=== PATIENT | male | born 1955 | race Caucasian/White ===

== ENCOUNTER 2018-03-21 17:51 | Emergency (ER) | END 2018-03-21 21:00 | disposition left against medical advice (07) ==

== ENCOUNTER 2018-03-22 03:04 | Inpatient (IN) | END 2018-03-22 14:35 | disposition left against medical advice (07) | DRG 440 ==

== ENCOUNTER 2018-10-16 20:02 | Emergency (ER) | payer MEDICAID ==
[~2018-10-16] VITALS: Ht 175.3 cm; Wt 63.6 kg
[2018-10-16 20:04] VITALS: Ht 175.3 cm; Wt 63.6 kg
[2018-10-16] MEDS ORDERED: morphine 4 MG/ML VIAL IV STA (22:26)
--- NOTE | 2018-10-16 23:51 | ERD ---
ER Documentation Chief Complaint Chief Complaint L FLANK PAIN X'S 3 DAYS, RECENTLY ADMITTED FOR SAME HPI 63-year-old male presenting with left lower quadrant abdominal pain for the last 3 days. He states he was at [facility] where they did "nothing". He denies any associated fever, chills, nausea, vomiting, diarrhea or constipation. He also has a rash in that area but does not think that this is related. The rash does not hurt and does not itch. He denies any hematuria or dysuria. Although the chief complaint states that he has flank pain, he is denying any flank pain. He just states that his left lower quadrant pain radiates to his left lower back. ROS All systems reviewed and are negative except as per history of present illness. Medications Home Meds Active Scripts Ibuprofen* (Motrin*) 600 Mg Tab, 600 MG PO Q6H PRN for PAIN LEVEL 1-5, #30 TAB Prov:AGNES MENDOZA MD 10/17/18 Oxycodone Hcl* (IR) (Oxycodone Hcl*) 5 Mg Capsule, 5 MG PO Q8 PRN for PAIN LEVEL 6-10, #9 TAB Prov:AGNES MENDOZA MD 10/17/18 valACYclovir HCl (Valtrex) 1,000 Mg Tablet, 1000 MG PO TID for 7 Days, TAB Prov:RAF VALDEZ MD 10/17/18 Allergies Allergies: Coded Allergies: No Known Allergy (Unverified , 03/21/18) PMhx/Soc History of Surgery: Yes (Left hip ORIF) Anesthesia Reaction: No Hx Neurological Disorder: No Hx Respiratory Disorders: No Hx Cardiac Disorders: No Hx Psychiatric Problems: No Hx Miscellaneous Medical Probl: Yes (Diverticulitis, Cataracts) Hx Alcohol Use: Yes (Occasionally) Hx Substance Use: Yes (Marijuana) Hx Tobacco Use: Yes (1 pack /day) Smoking Status: Current every day smoker FmHx Family History: No diabetes Physical Exam Vitals Vital Signs Date Temp Pulse Resp B/P (MAP) Pulse Ox O2 O2 Flow FiO2 Time Delivery Rate 10/17/18 92 18 131/75 95 Room Air 09:07 (93) 10/16/18 97.6 78 18 146/95 94 Room Air 21:10 (112) 10/16/18 97.0 85 18 123/72 94 20:04 (89) Physical Exam Const: No acute distress, disheveled Head: Atraumatic Eyes: Normal Conjunctiva ENT: Normal External Ears, Nose and Mouth. Neck: Full range of motion. No meningismus. Resp: Clear to auscultation bilaterally Cardio: Regular rate and rhythm, no murmurs Abd: Soft, left lower quadrant tenderness to palpation with guarding but no rebound. No masses.non distended. Normal bowel sounds Skin: Scaly maculopapular rash in the left lower quadrant with no vesicles, non-blanching. Back: No midline or flank tenderness Ext: No cyanosis, or edema Neur: Awake and alert Psych: Normal Mood and Affect Result Diagram: 10/16/18230910/16/182309 Results 24 hrs Laboratory Tests Test 10/16/18 23:10 White Blood Count 8.7 10^3/ul Red Blood Count 4.17 10^6/ul Hemoglobin 13.1 g/dl Hematocrit 38.6 % Mean Corpuscular Volume 92.6 fl Mean Corpuscular Hemoglobin 31.4 pg Mean Corpuscular Hemoglobin Concent 33.9 g/dl Red Cell Distribution Width 19.5 % Platelet Count 330 10^3/UL Mean Platelet Volume 10.7 fl Immature Granulocytes % 0.300 % Neutrophils % 61.9 % Lymphocytes % 23.4 % Monocytes % 13.3 % Eosinophils % 0.6 % Basophils % 0.5 % Nucleated Red Blood Cells % 0.2 /100WBC Immature Granulocytes # 0.030 10^3/ul Neutrophils # 5.4 10^3/ul Lymphocytes # 2.0 10^3/ul Monocytes # 1.2 10^3/ul Eosinophils # 0.1 10^3/ul Basophils # 0.0 10^3/ul Nucleated Red Blood Cells # 0.0 10^3/ul Urine Color YELLOW Urine Clarity CLEAR Urine pH 6.0 Urine Specific [place] 1.004 Urine Ketones NEGATIVE mg/dL Urine Nitrite NEGATIVE mg/dL Urine Bilirubin NEGATIVE mg/dL Urine Urobilinogen NEGATIVE mg/dL Urine Leukocyte Esterase NEGATIVE Rahul/ul Urine Hemoglobin NEGATIVE mg/dL Urine Glucose NEGATIVE mg/dL Urine Total Protein NEGATIVE mg/dl Sodium Level 137 mmol/L Potassium Level 3.9 mmol/L Chloride Level 98 mmol/L Carbon Dioxide Level 29 mmol/L Anion Gap 10 Blood Urea Nitrogen 5 mg/dl Creatinine 0.47 mg/dl Est Glomerular Filtrat Rate mL/min > 60 mL/min Glucose Level 90 mg/dl Calcium Level 9.2 mg/dl Total Bilirubin 0.5 mg/dl Direct Bilirubin 0.00 mg/dl Indirect Bilirubin 0.5 mg/dl Aspartate Amino Transf (AST/SGOT) 91 IU/L Alanine Aminotransferase (ALT/SGPT) 61 IU/L Alkaline Phosphatase 161 IU/L Total Protein 8.3 g/dl Albumin 4.1 g/dl Globulin 4.20 g/dl Albumin/Globulin Ratio 0.97 Current Medications Medications Dose Sig/Dorothy Start Time Status Last (Trade) Ordered Route PRN Stop Time Admin Dose Reason Admin Morphine 4 mg ONCE STAT 10/16/18 DC 10/16/18 Sulfate IV 22:26 23:16 (morphine) 10/16/18 22:28 1 tab ONCE ONCE 10/17/18 DC 10/17/18 Acetaminophen PO 02:00 01:43 / 10/17/18 02:01 Hydrocodone Bitart ([place] (10/325)) Ibuprofen 600 mg ONCE ONCE 10/17/18 DC 10/17/18 (Motrin) PO 07:00 06:38 10/17/18 07:01 Procedures/MDM EMERGENT LABS AND DIAGNOSTIC STUDIES: Lab Results above were reviewed and interpreted by me. CBC: no anemia or evidence of infection CMP: No evidence of clinically significant electrolyte abnormality, acidosis, renal failure, hypoglycemia, liver disease, or biliary obstruction UA: no evidence of infection Radiology Results as interpreted by Radiology below were reviewed by Marietta Valdez MD: CT abdomen and pelvis: Pending Initial Nursing notes reviewed. Previous Medical Records requested via the Electronic Health Record. EMERGENCY DEPARTMENT COURSE / MEDICAL DECISION MAKING: Differential includes but is not limited to appendicitis, colitis, cystitis, ureterolithiasis, diverticulitis, abdominal aortic dissection, bowel obstruction, fecal impaction. Bloodwork, and UA ordered to evaluate for above. CT abdomen and pelvis ordered and is pending. It is quite possible that the patient is suffering from shingles which is why he is experiencing pain in the left lower quadrant where the rash is located. He was treated with pain medications. Prescription for Valtrex was written. Patient signed out to the oncoming ED physician who will follow up on the CT scan to make sure there is no evidence of acute surgical abdomen prior to discharge. Patient's blood pressure was elevated (>120/80) but appears stable without evidence of hypertensive emergency or urgency. The patient was counseled about the risks of hypertension and urged to pursue outpatient monitoring and therapy within a week with their primary care physician. Departure Diagnosis: Primary Impression: Left lower quadrant pain Additional Impression: Herpes zoster dermatitis Condition: Stable RAF VALDEZ MD Oct 16, 2018 23:50
[2018-10-17] MEDS ORDERED: VALA10004 PO (00:23)
[2018-10-17] MEDS ORDERED: HYDROCODONE/APAP (10/325) TAB PO ONE (02:00)
[2018-10-17] MEDS ORDERED: IBUPROFEN 600 MG TAB PO ONE (07:00)
[2018-10-17 09:07] VITALS: BP 131/75; PULSE 92; RESP 18
[2018-10-17] MEDS ORDERED: OXYC5CAP17 PO (17:59)
[2018-10-17] MEDS ORDERED: IBUP-1542 PO (17:59)
== END 2018-10-17 09:28 | disposition home or self-care (01) ==
LOC: E/R 20:02
DX: R10.32 Left lower quadrant pain (principal); B02.39 Other herpes zoster eye disease; F17.210 Nicotine dependence, cigarettes, uncomplicated
CPT/HCPCS: 36415; 74176; 80053; 81003; 85025; 96374; J2270; Z7502; Z7610

== ENCOUNTER 2018-10-17 16:40 | Emergency (ER) | payer MEDICAID ==
[~2018-10-17] VITALS: Ht 175.3 cm; Wt 64.0 kg
[~2018-10-17 16:40] MED LIST: VALA10004 PO
[2018-10-17 16:46] VITALS: Ht 175.3 cm; Wt 64.0 kg
[2018-10-17] MEDS ORDERED: OXYCODONE/ACETAMINOPHEN (5/325) TAB PO ONE (17:30)
--- NOTE | 2018-10-17 17:58 | ERD ---
ER Documentation Chief Complaint Chief Complaint LLQ QUADRANT PAIN HPI This is a 63-year-old man with a past medical history of diverticulosis with previous bouts of diverticulitis who is presenting with persistent left lower quadrant abdominal pain. The patient was evaluated multiple times yesterday for left lower quadrant abdominal pain. The patient had a full abdominal workup yesterday that was reassuring. The patient does have diverticulosis but no evidence of diverticulitis. The patient does have a rash over the left lower quadrant and was diagnosed with herpes zoster yesterday. The patient was given a prescription of valacyclovir, but he has not filled it. The patient is endorsing persistent left lower abdominal pain today. He denies nausea or vomiting. He has not had any diarrhea. He has not had any he denies constipation or diarrhea. He has not had any black or bloody or tarry stools. He has not had any dysuria or hematuria or urgency or frequency. The patient is afebrile and does not feel sick otherwise. The patient has had no headache or vision changes. The patient does not endorse neck or back pain. The patient denies lightheadedness or dizziness. The patient has had no chest pain or trouble breathing. The patient has had no focal deficits. The patient has had no weakness or numbness or tingling to the face or extremities. ROS All systems reviewed and are negative except as per history of present illness. Medications Home Meds Active Scripts valACYclovir HCl (Valtrex) 1,000 Mg Tablet, 1000 MG PO TID for 7 Days, TAB Prov:RAF MILLAN MD 10/17/18 Allergies Allergies: Coded Allergies: No Known Allergy (Unverified , 03/21/18) PMhx/Soc History of Surgery: Yes (Left hip ORIF) Anesthesia Reaction: No Hx Neurological Disorder: No Hx Respiratory Disorders: No Hx Cardiac Disorders: No Hx Psychiatric Problems: No Hx Miscellaneous Medical Probl: Yes (Diverticulitis, Cataracts, herpes zoster) Hx Alcohol Use: Yes (Occasionally) Hx Substance Use: Yes (Marijuana) Hx Tobacco Use: Yes (1 pack /day) Smoking Status: Current every day smoker FmHx Family History: No diabetes Physical Exam Vitals Vital Signs Date Temp Pulse Resp B/P (MAP) Pulse Ox O2 O2 Flow FiO2 Time Delivery Rate 10/17/18 98.5 90 19 138/70 94 16:46 (92) Physical Exam Const: No acute distress Head: Atraumatic Eyes: Normal Conjunctiva ENT: Normal External Ears, Nose and Mouth. Neck: Full range of motion. No meningismus. Resp: Clear to auscultation bilaterally Cardio: Regular rate and rhythm, no murmurs Abd: Soft, non distended. Superficial left lower quadrant tenderness. Normal bowel sounds Skin: No petechiae. Erythematous vesicular rash isolated to a dermatome over the left lower quadrant of the abdomen, very tender to touch. Back: No midline or flank tenderness Ext: No cyanosis, or edema Neur: Awake and alert Psych: Normal Mood and Affect Results 24 hrs Current Medications Medications Dose Sig/Dorothy Start Time Status Last (Trade) Ordered Route PRN Stop Time Admin Dose Reason Admin Oxycodone/ 1 tab ONCE ONCE 10/17/18 DC 10/17/18 Acetaminophen PO 17:30 17:40 (Percocet 10/17/18 17:31 (5/ 325)) Procedures/MDM MDM The patient's presentation warrants further investigation. Previous medical records, if available, were reviewed. LABS The patient's laboratory testing was reviewed from yesterday. No emergent treatment was required unless described below. CBC: No E/o systemic infection or thrombocytopenia. Mild normocytic anemia, not emergent. Chemistry: No E/o severe acidosis or alkalosis or renal failure or diabetic ketoacidosis. Mild transaminitis, not emergent. Urine: No E/o acute infection or hematuria IMAGING Imaging and Radiology interpretation reviewed. CT abdomen pelvis performed yesterday FINDINGS: CT abdomen Visualized lung bases: Large area of airspace disease involving the right middle lobe. Hyperinflated lungs with flattening hemidiaphragms. Asymmetric peribronchial thickening right lower lobe. Patchy decreased aeration posterior lateral inferior right lower lobe. No significant pleural or pericardial effusion. Liver: Limited evaluation without IV contrast. Mild hepatic steatosis. Small calcifications and areas of C liver parenchymal attenuation change in the la teral right hepatic lobe, correspond to a much larger lesion seen on the contrast-enhanced study from 2018. Gallbladder and bile ducts: No calcified gallstones or pericholecystic fluid. No biliary ductal dilatation. Spleen: Small spleen. Pancreas: Dilated pancreatic duct. 2.2 cm exophytic low attenuation mass lesion in off the inferior body of the pancreas, unchanged. Multiple small calcifications noted within the head of the pancreas, increased in number. Adrenal glands: 2.1 cm low attenuation left adrenal mass, unchanged. The normal right adrenal gland Kidneys: Multiple nonobstructing calcified stones in the left and right ki dneys, largest measuring 5 mm in size. No hydronephrosis or hydroureter. Vasculature: No abdominal aortic aneurysm. Calcified plaque present. Negative IVC. Lymph nodes: No periaortic or portacaval adenopathy. 1.3 cm right retrocrural lymph node/cyst, unchanged. GI: No evidence of obstruction or bowel wall thickening. Peritoneal cavity: No free fluid or free air. CT pelvis GI: Negative terminal ileum. The appendix is not identified. Sigmoid diverticulosis. Negative rectum. : Normal distal ureters, ureterovesicle junctions and urinary bladder. Negative prostate gland. Peritoneal cavity: No free fluid or loculated fluid collections. Lymph nodes: No adenopathy. Osseous structures: Remote left hip ORIF with hardware. Bones are demineralized. No acute endplate fracture. L5-S1 disc degeneration with vacuum phenomenon. IMPRESSION: 1. Large mass in the right hepatic lobe demonstrated on the contrast-enhanced study from 05/05/2018 is not as well visualized on the noncontrast study. I cannot ascertain if the mass has enlarged, regressed or is unchanged from the previous exam. There are small calcifications in the vicinity of the mass which are new from the previous exam. 2. COPD with right lower lobe bronchitis and atelectasis involving the posterior right middle lobe. 3. 2.2 cm exophytic cystic mass arising from the inferior body of the pancreas, unchanged. 4. Multiple small pancreatic head calcifications which have increased in number in the 5-month interval since the previous exam. 5. Multiple nonobstructing bilateral renal stones, 5 mm and left and size. 6. 2.1 cm left adrenal mass, unchanged. Probable adenoma. 7. Sigmoid diverticulosis. No acute diverticulitis. 8. Severe bony demineralization with remote left hip ORIF. Electronically viewed and signed by Physician Neo on 10/17/2018 00:34 TREATMENT/DISPOSITION The patient presents for persistent superficial left lower quadrant pain. The patient has herpes zoster, which I suspect to be the etiology of his symptoms. The patient had a full workup performed yesterday, and I do not feel the patient requires repeat testing today. The patient does have a right hepatic lobe mass, a unchanged pancreatic cystic mass, diverticulosis without diverticulitis, multiple small pancreatic head calcifications, nonobstructing renal stones, and an unchanged left adrenal mass. The patient will be notified of these studies and does require outpatient follow-up, but I do not suspect this to be the etiology of his symptoms today. The patient was given a dose of oxycodone with Tylenol in the emergency department. He needs to fill his valacyclovir prescription. The patient's pain is isolated to the region of his herpes zoster. The patient does not have any evidence of peritonitis. The patient does not have clinical symptoms concerning for mesenteric ischemia or ischemic colitis. The patient does not have right upper quadrant tenderness, and I have low suspicion for gallstones, cholecystitis or biliary colic. The patient does not have any epigastric pain. I have low suspicion for gastritis, PUD or GERD. The patient does not have left upper quadrant tenderness. I have low suspicion for pancreatitis. The patient does not have any right lower quadrant tenderness, or periumbilical tenderness. I have low suspicion for appendicitis. The patient does not have suprapubic tenderness. I have decreased suspicion for cystitis. The patient does not have any flank tenderness. The patient does not have gross hematuria. I have decreased suspicion for nephrolithiasis or renal colic. The patient does not have any palpable pulsatile mass or severe abdominal pain radiating to the back. I have low suspicion for aortic aneurysm, dissection or rupture. DISCHARGE Upon reevaluation of the patient, symptoms have improved. No emergent diagnoses were identified. At this time, I feel that the patient stable for discharge. The patient was instructed to follow-up with a primary care physician in 1-3 days. The patient will be given strict precautions with which to return to the emergency department. Prescriptions: Oxycodone, Narcan. Cures database accessed. The patient was given a 5-day supply of opiate medications on October 03, 2018. I do feel that it is appropriate to provide him an additional prescription today. The patient's blood pressure was elevated at greater than 120/80 while in the emergency department. The patient was otherwise stable with no evidence of hypertensive urgency or emergency. The patient does not require admission for blood pressure control. I have discussed with the patient the risks of hypertension. I have instructed the patient to return to the ER for any new or worsening symptoms including chest pain, shortness of breath, headache, blurred vision, confusion, nausea, vomiting or LOC. I have advised the patient to follow up with the primary care physician for outpatient monitoring and treatment for hypertension in 1-3 days. Disclaimer: Inadvertent spelling and grammatical errors are likely due to EHR/dictation software use and do not reflect on the overall quality of patient care. Note that the electronic time recorded on this note does not necessarily reflect the actual time of the patient encounter. Departure Diagnosis: Primary Impression: Herpes zoster Herpes zoster complications: without complications Qualified Codes: B02.9 - Zoster without complications Additional Impressions: Left lower quadrant abdominal pain affecting Diverticulosis Left adrenal mass Nephrolithiasis Pancreatic calcification Liver mass, right lobe Transaminitis Normocytic anemia Condition: Stable Patient Instructions: Abdominal Pain, Shingles (Herpes Zoster) Additional Instructions: It is very important to follow-up with a primary care physician for the incidental findings on your abdominal CT yesterday. Your symptoms today are very likely associated with herpes zoster. You need to take the medications previously prescribed to you. Thank you for for coming to [facility] for your care today. Please ask your nurse or provider if you have questions about your care today and do not leave until all your questions have been answered. Please use any medications given as directed and follow-up with your doctor (or the doctor you were referred to) in the next 1-3 days. If you do not have a primary care doctor you may follow up at the [facility] or [facility] (listed below). You may also use motrin and tylenol as needed for fever and/or pain unless instructed otherwise by your provider or nurse. Indications for more urgent follow-up have been discussed, but you may return to the Emergency Department at ANY time for any worrisome or worsening symptoms. If you have abdominal pain, please know that no test or exam you received is pe rfect and you should follow up within 8 hours for continued pain. If you had any imaging studies today, such as an X-Ray or CT Scan, these studies will be reviewed later by a radiologist. You will be called if there are important findings that were not identified today, so make sure the contact information you provided at registration is correct. If you received any narcotic pain control medicine today, such as Vicodin, Morphine or Dilaudid, your coordination and judgment may be affected for a number of hours. Please do not drive or operate heavy machinery, and you may want someone to assist you at home. If you were given a prescription for narcotic medication, be aware that it is very addictive- use sparingly and only if necessary. PLEASE SEEK FURTHER EVALUATION AND MANAGEMENT AT YOUR DOCTORS OFFICE WITHIN THE NEXT 1-3 DAYS. IT IS YOUR RESPONSIBILITY TO MAKE AN APPOINTMENT FOR FOLOW-UP CARE. IF YOU HAVE A PRIMARY DOCTOR, PLEASE CALL THEIR OFFICE TO SCHEDULE AN APPOINTMENT FOR FOLLOW UP. IF YOU DO NOT HAVE A PRIMARY DOCTOR YOU CAN CALL OUR PHYSICIAN REFERRAL HOTLINE AT IF YOU CAN NOT AFFORD TO SEE A PHYSICIAN YOU CAN CHOSE FROM THE FOLLOWING [facility]: [facility] [address] [address] [facility] [facility] [address] [facility] [facility] [address] [facility]. [facility] [address] [facility]. [facility] [address] [facility]. [facility]. [address] AGNES GOLDSMITH MD Oct 17, 2018 17:54
[2018-10-17] MEDS ORDERED: IBUP-1542 PO (17:59)
[2018-10-17] MEDS ORDERED: OXYC5CAP17 PO (17:59)
[2018-10-17 18:13] VITALS: BP 138/78; PULSE 78; RESP 20
== END 2018-10-17 18:14 | disposition home or self-care (01) ==
LOC: E/R 16:40
DX: B02.9 Zoster without complications (principal); K57.30 Diverticulosis of large intestine without perforation or abscess without bleeding; E27.9 Disorder of adrenal gland, unspecified; N20.0 Calculus of kidney; K86.89 Other specified diseases of pancreas; R16.0 Hepatomegaly, not elsewhere classified; R74.0 Nonspecific elevation of levels of transaminase and lactic acid dehydrogenase [LDH]; D64.9 Anemia, unspecified; F17.210 Nicotine dependence, cigarettes, uncomplicated
CPT/HCPCS: Z7502; Z7610; 99283

== ENCOUNTER 2018-10-18 19:07 | Inpatient (IN) | payer MEDICARE, MEDICAID ==
[~2018-10-18] VITALS: Ht 175.3 cm; Wt 63.0 kg
[~2018-10-18 19:07] MED LIST changes: +IBUP-1542 PO; +OXYC5CAP17 PO
[2018-10-18] MEDS ORDERED: ONDANSETRON 4 MG INJ IV STA (19:34)
[2018-10-18] MEDS ORDERED: SOD CHLORIDE 0.9% 1,000 ML IV STA (19:34)
[2018-10-18] MEDS ORDERED: morphine 4 MG/ML VIAL IV STA (19:34)
[2018-10-18] MEDS ORDERED: ACYCLOVIR 800 MG TAB PO ONE (20:00)
--- NOTE | 2018-10-18 20:55 | ERD ---
ER Documentation Chief Complaint Chief Complaint L flank pain x3 days, seen yesterday for same symptoms, mild SOB HPI 63-year-old homeless gentleman who now has 3 days in a row visiting for abdominal pain the patient has left lower quadrant abdominal pain with associated rash. Patient has been diagnosed with shingles. He describes persistent burning and dull aching pain to left lower quadrant in a dermatomal distribution along his rash area. The patient has not been able to fill pain medication or antiviral medication. He denies any fevers chills nausea or vomiting. Pain is 9 out of 10 currently. ROS All systems reviewed and are negative except as per history of present illness. Medications Home Meds Active Scripts Ibuprofen* (Motrin*) 600 Mg Tab, 600 MG PO Q6H PRN for PAIN LEVEL 1-5, #30 TAB Prov:AGNES MENDOZA MD 10/17/18 Oxycodone Hcl* (IR) (Oxycodone Hcl*) 5 Mg Capsule, 5 MG PO Q8 PRN for PAIN LEVEL 6-10, #9 TAB Prov:AGNES MENDOZA MD 10/17/18 valACYclovir HCl (Valtrex) 1,000 Mg Tablet, 1000 MG PO TID for 7 Days, TAB Prov:RAF MILLAN MD 10/17/18 Allergies Allergies: Coded Allergies: No Known Allergy (Unverified , 03/21/18) PMhx/Soc History of Surgery: Yes (Left hip ORIF) Anesthesia Reaction: No Hx Neurological Disorder: No Hx Respiratory Disorders: Yes (COPD) Hx Cardiac Disorders: No Hx Psychiatric Problems: No Hx Miscellaneous Medical Probl: Yes (Diverticulitis, Cataracts, herpes zoster) Hx Alcohol Use: Yes (Occasionally) Hx Substance Use: Yes (Marijuana) Hx Tobacco Use: Yes (1 pack /day) Smoking Status: Current every day smoker FmHx Family History: No diabetes Physical Exam Vitals Vital Signs Date Temp Pulse Resp B/P (MAP) Pulse Ox O2 O2 Flow FiO2 Time Delivery Rate 10/18/18 72 18 104/68 93 Room Air 21:20 (80) 10/18/18 98.3 89 18 123/64 90 19:12 (83) Physical Exam General: Disheveled, uncomfortable Head: Normocephalic, atraumatic. Eyes: Pupils equally reactive, EOM intact ENT: Moist mucous membranes Neck: Supple, no lymphadenopathy Respiratory: Lungs clear bilaterally, no distress Cardiovascular: RRR, no murmurs, rubs, or gallops Abdominal: Soft, a rashe is noted to the left lower quadrant in a T10/11 dermatomal distribution that is dry, round and appears to be resolving vesicular rash with slight erythema : Deferred MSK: No edema, no unilateral swelling, 5/5 strength Neurologic: Alert and oriented, moving all extremities, normal speech, no focal weakness, no cerebellar signs Skin: No rash Psych: Normal mood Result Diagram: 10/18/18194310/18/181943 Results 24 hrs Laboratory Tests Test 10/18/18 19:44 White Blood Count 5.7 10^3/ul Red Blood Count 3.80 10^6/ul Hemoglobin 12.1 g/dl Hematocrit 35.6 % Mean Corpuscular Volume 93.7 fl Mean Corpuscular Hemoglobin 31.8 pg Mean Corpuscular Hemoglobin Concent 34.0 g/dl Red Cell Distribution Width 19.3 % Platelet Count 292 10^3/UL Mean Platelet Volume 10.7 fl Immature Granulocytes % 0.200 % Neutrophils % 56.2 % Lymphocytes % 28.5 % Monocytes % 12.9 % Eosinophils % 1.1 % Basophils % 1.1 % Nucleated Red Blood Cells % 0.0 /100WBC Immature Granulocytes # 0.010 10^3/ul Neutrophils # 3.2 10^3/ul Lymphocytes # 1.6 10^3/ul Monocytes # 0.7 10^3/ul Eosinophils # 0.1 10^3/ul Basophils # 0.1 10^3/ul Nucleated Red Blood Cells # 0.0 10^3/ul Prothrombin Time 12.7 Sec Prothrombin Time Ratio 1.0 INR International Normalized Ratio 0.94 Activated Partial Thromboplast Time 28.6 Sec Sodium Level 138 mmol/L Potassium Level 4.1 mmol/L Chloride Level 99 mmol/L Carbon Dioxide Level 26 mmol/L Anion Gap 13 Blood Urea Nitrogen 4 mg/dl Creatinine 0.50 mg/dl Est Glomerular Filtrat Rate mL/min > 60 mL/min Glucose Level 93 mg/dl Calcium Level 9.1 mg/dl Total Bilirubin 0.5 mg/dl Direct Bilirubin 0.00 mg/dl Indirect Bilirubin 0.5 mg/dl Aspartate Amino Transf (AST/SGOT) 110 IU/L Alanine Aminotransferase (ALT/SGPT) 64 IU/L Alkaline Phosphatase 154 IU/L Total Protein 8.1 g/dl Albumin 3.9 g/dl Globulin 4.20 g/dl Albumin/Globulin Ratio 0.92 Lipase 1145 U/L Current Medications Medications Dose Sig/Dorothy Start Time Status Last (Trade) Ordered Route PRN Stop Time Admin Dose Reason Admin Sodium 1,000 ml @ Q1H STAT 10/18/18 DC 10/18/18 Chloride 1,000 mls/hr IV 19:34 19:55 10/18/18 20:33 Morphine 4 mg ONCE STAT 10/18/18 DC 10/18/18 Sulfate IV 19:34 19:55 (morphine) 10/18/18 19:35 Ondansetron 4 mg ONCE STAT 10/18/18 DC 10/18/18 HCl (Zofran IV 19:34 19:54 Inj) 10/18/18 19:35 Acyclovir 800 mg ONCE ONCE 10/18/18 DC 10/18/18 (Zovirax) PO 20:00 20:03 10/18/18 20:01 Ondansetron 4 mg BRIDGE ORDER 10/18/18 HCl (Zofran PRN IV 21:30 Inj) NAUSEA/VOMITI 10/19/18 21:29 NG 650 mg ER BRIDGE 10/18/18 Acetaminophen PRN PO 21:30 (Tylenol .MILD PAIN 10/19/18 21:29 Tab) 1-3 OR TEMP Valacyclovir 1,000 mg TID PO 10/19/18 DC HCl 09:00 (Valtrex) 10/19/18 09:00 Valacyclovir 1,000 mg TID PO 10/19/18 HCl 04:00 (Valtrex) 10/26/18 03:59 1 tab Q6H PRN 10/18/18 Acetaminophen PO MODERATE 21:30 / PAIN LEVEL Hydrocodone 4-6 Bitart ([place] (10/325)) Morphine 4 mg Q4H PRN 10/18/18 Sulfate IV SEVERE 21:30 (morphine) PAIN LEVEL 7-10 Sodium 1,000 ml @ Q10H IV 10/18/18 Chloride 100 mls/hr 21:17 IV Flush 3 ml PER 10/18/18 (NS 3 ml) PROTOCOL IV 21:30 Ondansetron 4 mg Q6H PRN 10/18/18 HCl (Zofran IV 21:30 Inj) NAUSEA/VOMITI NG 650 mg Q6H PRN 10/18/18 Acetaminophen PO .PAIN 1-3 21:30 (Tylenol OR TEMP Tab) Docusate 100 mg Q12H PRN 10/18/18 Sodium PO 21:30 (Colace) .CONSTIPATION Bisacodyl 5 mg DAILY PRN 10/18/18 (Dulcolax) PO 21:30 .CONSTIPATION Heparin 5,000 unit Q8 SC 10/18/18 Sodium 22:00 (Porcine) (Heparin (5000 Units/1ml)) IV Flush 10 ml STK-MED 10/18/18 DC (NS 10 ml) ONCE .ROUTE 21:37 10/18/18 21:38 Sodium 100 ml @ ud STK-MED 10/18/18 DC Chloride ONCE .ROUTE 21:37 10/18/18 21:38 Iohexol 150 ml STK-MED 10/18/18 DC (Omnipaque ONCE .ROUTE 21:37 300mg/ ml) 10/18/18 21:38 Procedures/MDM EKG, MONITORS, & DIAGNOSTIC IMAGING: CT a/p from 3 days ago IMPRESSION: 1. Large mass in the right hepatic lobe demonstrated on the contrast-enhanced study from 05/05/2018 is not as well visualized on the noncontrast study. I cannot ascertain if the mass has enlarged, regressed or is unchanged from the previous exam. There are small calcifications in the vicinity of the mass which are new from the previous exam. 2. COPD with right lower lobe bronchitis and atelectasis involving the posterior right middle lobe. 3. 2.2 cm exophytic cystic mass arising from the inferior body of the pancreas, unchanged. 4. Multiple small pancreatic head calcifications which have increased in number in the 5-month interval since the previous exam. 5. Multiple nonobstructing bilateral renal stones, 5 mm and left and size. 6. 2.1 cm left adrenal mass, unchanged. Probable adenoma. 7. Sigmoid diverticulosis. No acute diverticulitis. 8. Severe bony demineralization with remote left hip ORIF. RPTAT: [facility] LAB INTERPRETATION: I reviewed the laboratory testing and it shows lipase elevation MEDICAL DECISION MAKING: The patient presents with persistent left lower quadrant abdominal pain. This is likely secondary to shingles however the patient CT was reviewed from 3 days ago shows a hepatic mass. Concern for possible malignancy. Patient has failed outpatient therapy and unable to obtain medications including antivirals and pain medication. For this reason hospitalization would likely be appropriate. Additionally the patient's lipase is elevated concerning for pancreatitis, idiopathic. Further workup, IV hydration and pain control as necessary. ER COURSE: * Patient was given IV fluids and pain control medication. Laboratory testing suggested acute pancreatitis, idiopathic. * Patient's pain is well controlled. No indication for repeat CT imaging. Inpatient workup appropriate. * Oral antiviral medication provided. CONSULTATION: [None] DISPOSITION PLAN: Accepting care team and consultations: I discussed the current laboratory data, diagnostic imaging and emergency care provided. Admitting team: Dr. Lomax Admitting team indication: Insurance directed Departure Diagnosis: Primary Impression: Herpes zoster dermatitis Additional Impressions: Left lower quadrant pain Acute pancreatitis Pancreatitis type: unspecified pancreatitis type Acute pancreatitis complication: unspecified Qualified Codes: K85.90 - Acute pancreatitis without necrosis or infection, unspecified Condition: Stable JOSE LUIS VANEGAS MD Oct 18, 2018 20:55
[2018-10-18] MEDS ORDERED: BISACODYL (EC) 5 MG TAB PO PRN (21:30)
[2018-10-18] MEDS ORDERED: morphine 4 MG/ML VIAL IV PRN (21:30)
[2018-10-18] MEDS ORDERED: NACL 0.9% 3 ML SYG IV SCH (21:30)
[2018-10-18] MEDS ORDERED: ACETAMINOPHEN 325 MG TAB PO PRN ×2 (21:30)
[2018-10-18] MEDS ORDERED: HYDROCODONE/APAP (10/325) TAB PO PRN (21:30)
[2018-10-18] MEDS ORDERED: ONDANSETRON 4 MG INJ IV PRN ×2 (21:30)
[2018-10-18] MEDS ORDERED: DOCUSATE SODIUM 100 MG CAP PO PRN (21:30)
[2018-10-18] MEDS ORDERED: IOHEXOL 300MG/ML 150 ML BTL ONE (21:37)
[2018-10-18] MEDS ORDERED: SOD CHLORIDE 0.9% 100 ML ONE (21:37)
--- NOTE | 2018-10-18 21:45 | HP ---
Date/Time of Note Date/Time of Note DATE: 10/18/18 TIME: 21:44 Assessment/Plan VTE Prophylaxis SCD applied (from Nsg): Yes SCD contraindicated: low risk/ambulating Pharmacological prophylaxis: heparin Lines/Catheters IV Catheter Type (from Nrsg): Peripheral IV Assessment/Plan Hospital Course This is a 63-year-old male being admitted to the [facility] floor for: #1 acute pancreatitis: Etiology possibly secondary to alcohol. We will keep the patient n.p.o., IV fluid hydration with normal saline. Pain control. Zofran for nausea. #2 shingles: Valganciclovir, pain control with [place]. #3 history of hepatic mass: Patient's previous CT of the abdomen pelvis did show signs of mass in the hepatic lobe, also lesions noted at the liver. Patient's previous CEA as well as CA 19 were elevated. Patient however left AMA before any further workup was able to be done. At the current time will order a CT scan of the abdomen pelvis with IV contrast. Will order repeat tumor markers. Will consult Dr. diaz #4 alcohol intoxication: Librium, Ativan as needed #5 tobacco use: I did recommend nicotine patch as well as nicotine gum however patient adamantly refused these. #6 DVT GI prophylaxis: SCDs, no GI prophylaxis indicated Further treatment strategy will be implemented as per the clinical course. Result Diagram: 10/18/18194310/18/181943 Results 24hrs Laboratory Tests Test 10/18/18 19:44 White Blood Count 5.7 # Red Blood Count 3.80 L Hemoglobin 12.1 L Hematocrit 35.6 L Mean Corpuscular Volume 93.7 Mean Corpuscular Hemoglobin 31.8 Mean Corpuscular Hemoglobin Concent 34.0 Red Cell Distribution Width 19.3 H Platelet Count 292 Mean Platelet Volume 10.7 H Immature Granulocytes % 0.200 Neutrophils % 56.2 Lymphocytes % 28.5 Monocytes % 12.9 H Eosinophils % 1.1 Basophils % 1.1 Nucleated Red Blood Cells % 0.0 Immature Granulocytes # 0.010 Neutrophils # 3.2 Lymphocytes # 1.6 Monocytes # 0.7 Eosinophils # 0.1 Basophils # 0.1 Nucleated Red Blood Cells # 0.0 Prothrombin Time 12.7 Prothrombin Time Ratio 1.0 INR International Normalized Ratio 0.94 Activated Partial Thromboplast Time 28.6 Sodium Level 138 Potassium Level 4.1 Chloride Level 99 Carbon Dioxide Level 26 Anion Gap 13 Blood Urea Nitrogen 4 L Creatinine 0.50 L Est Glomerular Filtrat Rate mL/min > 60 Glucose Level 93 Calcium Level 9.1 Total Bilirubin 0.5 Direct Bilirubin 0.00 Indirect Bilirubin 0.5 Aspartate Amino Transf (AST/SGOT) 110 H Alanine Aminotransferase (ALT/SGPT) 64 Alkaline Phosphatase 154 H Total Protein 8.1 Albumin 3.9 Globulin 4.20 H Albumin/Globulin Ratio 0.92 Lipase 1145 H HPI/ROS Admit Date/Time Admit Date/Time Hx of Present Illness cc: ab pain 63-year-old homeless gentleman who now has 3 days in a row visiting for abdominal pain the patient has left lower quadrant abdominal pain with a ssociated rash. Patient has been diagnosed with shingles. He describes persistent burning and dull aching pain to left lower quadrant in a dermatomal distribution along his rash area. The patient has not been able to fill pain medication or antiviral medication as an outpatient. He denies any fevers chills nausea or vomiting. Pain is 9 out of 10 currently. Of note, Patient was admitted in 03/[address] imaging studies and tumors markers concering for neoplasm, possible pancreatic however patient left AMA at that time. allergies: nkda meds:none ROS Const as per HPI Eyes : No pain discharge or redness or change in visual acuity ENT: No pain, sore throat, congestion, congestion, dysphagia or discharge Respiratory: No shortness of breath, cough, sputum, wheezing, or pleuritic pain Cardiovascular: No chest pain, palpitation, PND, or edema GI : As per HPI Genitourinary: No dysuria, hematuria, flank pain , discharge or CVA tenderness Musculoskeletal: No joint pain, back pain, neck pain, restricted range of motion in neck or joints Skin: As per HPI Neuro: No headache, dizziness, syncope, seizure, focal weakness Endocrine: No polyuria, polydipsia, temperature intolerance Psych: No hallucination, depression, anxiety or suicidal ideation PMH/Family/Social Past Medical History Abdominal mass, shingles Medications Current Medications Ondansetron HCl (Zofran Inj) 4 mg BRIDGE ORDER PRN IV NAUSEA/VOMITING; Start 10/18/18 at 21:30; Stop 10/19/18 at 21:29 Acetaminophen (Tylenol Tab) 650 mg ER BRIDGE PRN PO .MILD PAIN 1-3 OR TEMP; Start 10/18/18 at 21:30; Stop 10/19/18 at 21:29 Valacyclovir HCl (Valtrex) 1,000 mg TID PO ; Start 10/19/18 at 04:00; Stop 10/26/18 at 03:59 Acetaminophen/ Hydrocodone Bitart ([place] (10/325)) 1 tab Q6H PRN PO MODERATE PAIN LEVEL 4-6; Start 10/18/18 at 21:30 Morphine Sulfate (morphine) 4 mg Q4H PRN IV SEVERE PAIN LEVEL 7-10; Start 10/18/18 at 21:30 Sodium Chloride 1,000 ml @ 100 mls/hr Q10H IV ; Start 10/18/18 at 21:17 IV Flush (NS 3 ml) 3 ml PER PROTOCOL IV ; Start 10/18/18 at 21:30 Ondansetron HCl (Zofran Inj) 4 mg Q6H PRN IV NAUSEA/VOMITING; Start 10/18/18 at 21:30 Acetaminophen (Tylenol Tab) 650 mg Q6H PRN PO .PAIN 1-3 OR TEMP; Start 10/18/18 at 21:30 Docusate Sodium (Colace) 100 mg Q12H PRN PO .CONSTIPATION; Start 10/18/18 at 21:30 Bisacodyl (Dulcolax) 5 mg DAILY PRN PO .CONSTIPATION; Start 10/18/18 at 21:30 Heparin Sodium (Porcine) (Heparin (5000 Units/1ml)) 5,000 unit Q8 SC ; Start 10/18/18 at 22:00 Coded Allergies: No Known Allergy (Unverified , 03/21/18) Past Surgical History Past Surgical Hx: no surgical history Family History Significant Family History: no pertinent family hx Social History Alcohol Use: heavy Smoking Status: Current every day smoker Drug Use: none Exam/Review of Systems Vital Signs Vitals Vital Signs Date Temp Pulse Resp B/P (MAP) Pulse Ox O2 O2 Flow FiO2 Time Delivery Rate 10/18/18 72 18 104/68 93 Room Air 21:20 (80) 10/18/18 98.3 19:12 Exam Exam General: Patient is currently sitting upright wanting to smoke a cigarette.. HEENT: Atraumatic, normocephalic. The pupils are equal, round and reactive. Extraocular motor are intact Neck: Supple with full range of motion. No rigidity or meningismus Chest: Nontender Lungs: Clear to auscultation bilaterally no crackles rales or wheezing Heart: Normal S1-S2, Regular rhythm and rate. No murmur, S3, or S4 Abdomen: Soft , epigastric tenderness palpation, nondistended , bowel sounds are present. No guarding no rebound tenderness , No masses or organomegaly. No costovertebral temporal angle mass Extremities: Normal to inspection, no edema no cyanosis Skin: Left-sided lower abdominal skin rash in dermatomal pattern Neurologic: Normal mental status, speech normal, cranial nerves II through XII are intact, motor and sensory are intact, Additional Comments PROCEDURE: CT abdomen and pelvis without contrast. CLINICAL INDICATION: 63-year-old male. Abdominal pain. TECHNIQUE: CT scan of the abdomen and pelvis without contrast was performed on a multi-slice CT scanner utilizing axial imaging from the lung bases through the pubis symphysis. One or more the following does reduction techniques were utilized: Automated exposure control, adjustment of the mA/ or kV according to patient's size, or use of iterative reconstruction technique. Sagittal and coronal reformatted images were made. DICOM images are available for review. The CTDIvol is 6.7 mGy and the DLP is 376.22 mGycm. COMPARISON: CT abdomen pelvis 05/05/2018 FINDINGS: CT abdomen Visualized lung bases: Large area of airspace disease involving the right middle lobe. Hyperinflated lungs with flattening hemidiaphragms. Asymmetric peribronchial thickening right lower lobe. Patchy decreased aeration posterior lateral inferior right lower lobe. No significant pleural or pericardial effusion. Liver: Limited evaluation without IV contrast. Mild hepatic steatosis. Small calcifications and areas of C liver parenchymal attenuation change in the lateral right hepatic lobe, correspond to a much larger lesion seen on the contrast-enhanced study from 2018. Gallbladder and bile ducts: No calcified gallstones or pericholecystic fluid. No biliary ductal dilatation. Spleen: Small spleen. Pancreas: Dilated pancreatic duct. 2.2 cm exophytic low attenuation mass lesion in off the inferior body of the pancreas, unchanged. Multiple small calcifications noted within the head of the pancreas, increased in number. Adrenal glands: 2.1 cm low attenuation left adrenal mass, unchanged. The normal right adrenal gland Kidneys: Multiple nonobstructing calcified stones in the left and right kid neys, largest measuring 5 mm in size. No hydronephrosis or hydroureter. Vasculature: No abdominal aortic aneurysm. Calcified plaque present. Negative IVC. Lymph nodes: No periaortic or portacaval adenopathy. 1.3 cm right retrocrural lymph node/cyst, unchanged. GI: No evidence of obstruction or bowel wall thickening. Peritoneal cavity: No free fluid or free air. CT pelvis GI: Negative terminal ileum. The appendix is not identified. Sigmoid diverticulosis. Negative rectum. : Normal distal ureters, ureterovesicle junctions and urinary bladder. Negative prostate gland. Peritoneal cavity: No free fluid or loculated fluid collections. Lymph nodes: No adenopathy. Osseous structures: Remote left hip ORIF with hardware. Bones are demineralized. No acute endplate fracture. L5-S1 disc degeneration with vacuum phenomenon. IMPRESSION: 1. Large mass in the right hepatic lobe demonstrated on the contrast-enhanced study from 05/05/2018 is not as well visualized on the noncontrast study. I cannot ascertain if the mass has enlarged, regressed or is unchanged from the previous exam. There are small calcifications in the vicinity of the mass which are new from the previous exam. 2. COPD with right lower lobe bronchitis and atelectasis involving the posterior right middle lobe. 3. 2.2 cm exophytic cystic mass arising from the inferior body of the pancreas, unchanged. 4. Multiple small pancreatic head calcifications which have increased in number in the 5-month interval since the previous exam. 5. Multiple nonobstructing bilateral renal stones, 5 mm and left and size. 6. 2.1 cm left adrenal mass, unchanged. Probable adenoma. 7. Sigmoid diverticulosis. No acute diverticulitis. 8. Severe bony demineralization with remote left hip ORIF. RPTAT: HLRS Physician Neo Date Time Electronically viewed and signed by Physician Neo on 10/17/2018 00:34 RS/ CC: RAF MILLAN MD [id number] JODEE MCDUFFIE Oct 18, 2018 21:45
[2018-10-18] MEDS: HEPARIN 5,000 UNIT/1 ML VIAL SC SCH (22:16)
[2018-10-18 23:44] VITALS: BP 148/70; PULSE 64; RESP 18
[2018-10-19] MEDS: morphine 2 MG INJ IV PRN ×2 (01:05→05:13)
[2018-10-19 02:00] VITALS: BP 115/62; PULSE 69; RESP 18
[2018-10-19] MEDS: SOD CHLORIDE 0.9% 1,000 ML IV SCH ×2 (02:29→06:34)
[2018-10-19 03:09] VITALS: Ht 175.3 cm; Wt 63.0 kg
[2018-10-19] MEDS ORDERED: MULTIVITAMINS 10 ML, THIAMINE 100 MG, FOLIC ACID 1 MG in SOD CHLORIDE 0.9% 1,000 ML IVPB SCH (04:00)
[2018-10-19] MEDS ORDERED: CHLORDIAZEPOXIDE 25 MG CAP PO SCH (04:00)
[2018-10-19] MEDS ORDERED: valACYclovir 500 MG TAB PO SCH ×2 (04:00→09:00)
[2018-10-19] MEDS ORDERED: LORAZEPAM 2 MG INJ IV PRN (04:00)
[2018-10-19] MEDS: HEPARIN 5,000 UNIT/1 ML VIAL SC SCH (05:12)
[2018-10-19] MEDS ORDERED: THIAMINE 100 MG TAB PO SCH (09:00)
[2018-10-20] MEDS ORDERED: CHLORDIAZEPOXIDE 25 MG CAP PO SCH (04:00)
[2018-10-21] MEDS ORDERED: CHLORDIAZEPOXIDE 25 MG CAP PO SCH (04:00)
== END 2018-10-19 07:15 | disposition left against medical advice (07) | DRG 440 ==
LOC: E/R 19:07 → PP2 21:05
PROVIDERS: ADMIT Family Medicine; ATTEND Family Medicine
DX: K85.90 Acute pancreatitis without necrosis or infection, unspecified (principal); B02.9 Zoster without complications; Z72.0 Tobacco use; Y90.6 Blood alcohol level of 120-199 mg/100 ml; Z72.89 Other problems related to lifestyle; J44.9 Chronic obstructive pulmonary disease, unspecified
CPT/HCPCS: 36415; 74176; 80053; 80061; 80307; 81003; 82306; 83036; 83690; 83735; 84443; 85025; 85610; 85730; 86300; 86301; 86304; 96372; 96374; 99283; J1644; J2270; J2405; J3411; J7030; Q9967